=== PATIENT | female | born 1960 | race Hispanic/Latino ===

== ENCOUNTER → 2017-10-06 | Outpatient (CLI) | payer OTHER ==
[~2017-10-06] MED LIST: ASPIRIN81 M3; MEDROL4 M1 PO; MULTIVITAMIN QD; VICODIN ES TAB1 EACH PO; Z.0.CALTRATE 600 W1 PO; Z.0.CARISOPRODOL350 PO; Z.0.HYDROCHLOROTHIA2 PO; Z.0.LISINOPRIL10 MG PO; Z.0.SIMVASTATIN10 MG PO; Z.0.SOMA350 MG PO
[2017-10-06 15:14] LABS: BASOPHILS # (AUTO) 0.1 (0.0-0.1); BASOPHILS % 0.8 % (0.0-1.0); EOSINOPHILS # (AUTO) 0.1 (0.0-0.4); EOSINOPHILS % 1.6 % (0.0-6.0); HEMATOCRIT 37.7 % (34.2-44.1); HEMOGLOBIN 12.8 g/dL (12.0-16.0); LYMPHOCYTES # (AUTO) 2.6 (1.0-3.2); LYMPHOCYTES % 30.9 % (18.0-39.1); MEAN CORPUSCULAR HEMOGLOBIN 29.4 pg (28-32); MEAN CORPUSCULAR VOLUME 86.7 fL (81-99); MONOCYTES # (AUTO) 0.8 (0.2-0.8); NEUTROPHILS # (AUTO) 4.7 (2.1-6.9); NEUTROPHILS % 56.6 % (38.7-80.0); PLATELET COUNT 405 x10e3/uL (140-360); RED BLOOD COUNT 4.35 x10e6/uL (3.6-5.1); RED CELL DISTRIBUTION WIDTH 13.4 % (11.7-14.4)
--- NOTE | 2017-10-06 15:32 | Diagnostic Imaging Report ---
PROCEDURE: X-RAY CHEST, TWO VIEWS COMPARISON: Patients [facility], DX, CHEST 2 VIEWS, 10/08/2011, 17:54. INDICATIONS: cough FINDINGS: LUNGS: No consolidations or edema. Pulmonary vasculature is normal. PLEURA: No effusions or pneumothorax. HEART \T\ MEDIASTINUM: The heart is within normal size-limits. BONES \T\ SOFT TISSUES: Fusion plate in the lower cervical spine is partially imaged. Visualized portion is unremarkable. No focal osseous lesions. Soft tissues are unremarkable. CONCLUSION: No acute thoracic abnormality. Dictated by: Dixie Delgadillo M.D. on 10/06/2017 at 15:35 Electronically approved by: Dixie Delgadillo M.D. on 10/06/2017 at 15:35
[2017-10-06 15:41] LABS: ALANINE AMINOTRANSFERASE 19 IU/L (0-55); ALBUMIN 4.3 g/dL (3.5-5.0); ALBUMIN/GLOBULIN RATIO 1.3 (0.8-2.0); ALKALINE PHOSPHATASE 74 IU/L (40-150); ANION GAP 12.7 mmol/L (8-16); BLOOD UREA NITROGEN 15 mg/dL (7-26); BUN/CREATININE RATIO 19 (6-25); CALCIUM 10.1 mg/dL (8.4-10.2); CARBON DIOXIDE 30 mmol/L (22-29); CHLORIDE 97 mmol/L (98-107); CREATININE, SERUM 0.79 mg/dL (0.57-1.11); EST GLOMERULAR FILTRATION RATE > 60 ML/MIN (60-); GLUCOSE 83 mg/dL (74-118); POTASSIUM 3.7 mmol/L (3.5-5.1); SODIUM 136 mmol/L (136-145)
[2017-10-06 16:01] LABS: FREE THYROXINE INDEX 1.7754 (1.4-3.8); THYROID STIMULATING HORMONE 1.664 uIU/mL (0.350-4.940)
== END ==
LOC: RAD 14:52
PROVIDERS: ATTEND Internal Medicine Cardiovascular Disease
DX: R05 Cough (principal); R00.2 Palpitations; E78.2 Mixed hyperlipidemia
CPT/HCPCS: 36415; 71046; 80053; 84436; 84443; 84479; 85025

== ENCOUNTER 2021-04-14 09:35 | Emergency (ER) | payer BC, OTHER ==
[~2021-04-14] VITALS: Ht 167.6 cm; Wt 72.6 kg
== END 2021-04-14 10:59 | disposition home or self-care (01) ==
LOC: ER 09:44
DX: J06.9 Acute upper respiratory infection, unspecified (principal); Z20.822 Contact with and (suspected) exposure to COVID-19; I10 Essential (primary) hypertension; E78.5 Hyperlipidemia, unspecified; Z79.82 Long term (current) use of aspirin; Z79.899 Other long term (current) drug therapy
CPT/HCPCS: 99282